=== PATIENT | female | born 1945 | race Caucasian/White ===

== ENCOUNTER 2025-06-26 23:25 | Emergency (ER) | payer MEDICARE, OTHER ==
[~2025-06-26] VITALS: Ht 165.1 cm; Wt 63.0 kg
--- NOTE | 2025-06-27 01:06 | DVH ---
EXAM: CT HEAD WITHOUT CONTRAST INDICATION: Status post fall large hematoma occipital scalp TECHNIQUE: CT of the head without intravenous contrast. Radiation Dose : 1. Head: CT Dose: CTDI volume is 52.78 mGy. Dose-length product is 1087.19 mGy*cm The dose indicators for CT are the volume Computed Tomography (CT) Dose Index (CTDIvol) and the Dose Length Product (DLP), and are measured in units of mGy and mGy-cm, respectively. These indicators are not patient dose, but values generated from the CT scanner acquisition factors. The report includes radiation exposure data for exposures received during this examination. COMPARISON: None FINDINGS: There is no evidence of acute intracranial hemorrhage, extra-axial collection, mass effect, midline s hift, herniation or hydrocephalus. 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 Increased prominence of the ventricles, sulci and cisterns consistent with sequelae of atrophic corti justin volume loss. The hewitt-white differentiation is intact. Moderate diffuse confluent periventricular and subcortical white matter hypoattenuation is nonspecifi c but may be related to small vessel ischemic disease. The visualized paranasal sinuses and mastoid air cells are clear. Superior left temporoparietal craniotomy defect. Moderate left superior parietal scalp hematoma. The surrounding soft tissues and osseous structures are otherwise unremarkable. IMPRESSION: 1. No acute intracranial abnormality. 2. 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 Radiation optimization: All CT scans at this facility use at least one of these dose optimization aman hniques: automated exposure control mA and/or kV adjustment per patient size (includes targeted exam s where dose is matched to clinical indication) or iterative reconstruction.
--- NOTE | 2025-06-27 01:07 | DVH ---
EXAM: CT CERVICAL WITHOUT CONTRAST HISTORY: Status post fall neck pain COMPARISON: None CTDIvol 53 mGy, DLP 1087 mGy*cm. TECHNIQUE: Multiple axial CT images of the spine were obtained using bone algorithm. Axial and james l reformatting was done. Bone and soft tissue windows were reviewed. FINDINGS: No evidence of vertebral fracture or compresison deformity. Straightening of normal lordotic curvature. Mild degenerative anterolisthesis of C4-C5 and C7-T1, wit hout degenerative listhesis. Normal alignment of the craniocervical junction with degenerative change s. Moderate multilevel spondylosis. No acute finding of the neck soft tissues or upper chest. 9 mm left thyroid nodule, below size thresh old for further imaging workup. Mild atherosclerosis. IMPRESSION: 1. No acute finding of the cervical spine.
[2025-06-27 01:15] VITALS: PULSE 75; RESP 18; O2SAT 98
[2025-06-27 01:16] VITALS: BP 147/83; PULSE 70; RESP 18; TEMP 97.7; O2SAT 96
--- NOTE | 2025-06-27 11:32 | ED.PDOC ---
Antonino. trauma (HPI) HPI Comments PT PRESENTS TO ED FOR CC OF HEAD AND NECK PAIN S/P TRIP AND FALL. DENIES LOC REMEMBERS THE ENTIRE EVENT. CURRENTLY ON 81 MG DAILY ASPIRIN. DENIES CHEST PAIN, SHORTNESS OF BREATH, DIZZINESS, VISION CHANGES, SLURRED SPEECH, ABDOMINAL PAIN, BACK PAIN, NAUSEA OR VOMITING. Chief Complaint: Fall Injury Time Seen by MD: 23:43 Reviewed notes: Nurses Notes, [employer]ing [employer] Officer Notes, Medications, Allergies Allergies: Coded Allergies: Statins (Verified Allergy, Unknown, 06/26/25) Information Source: Patient Mode of Arrival: Ambulatory Past Medical History PAST MEDICAL HISTORY: Denies Surgical History: Denies all surgeries CEPHALOMETRIC TECHNICIAN History: No Pertinent CEPHALOMETRIC TECHNICIAN History Family History Family History: Unknown Social History Smoker: Non-Smoker Alcohol: Denies ETOH Use Drugs: Denies Drug Use All Other Systems: Reviewed and Negative (SEE HPI) Physical Exam General Appearance: No Apparent Distress, Normal HEENT: Head (BASEBALL SIZE HEMATOMA OCCIPITAL HEAD WITH NO OPEN LESIONS OR LACERATIONS. NO NOTED CREPITUS ON PALPATION), Normal ENT Inspection, Pharynx Normal, TMs Normal Neck: Full Range of Motion, Non-Tender, Normal, Normal Inspection Respiratory: Chest Non-Tender, Lungs Clear, No Accessory Muscle Use, No Respiratory Distress, Normal Breath Sounds Cardiovascular: No Edema, No JVD, No Murmur, No Gallop, Normal Peripheral Pulses, Regular Rate/Rhythm Breast Exam: Deferred Gastrointestinal: No Organomegaly, Non Tender, No Pulsatile Mass, Normal Bowel Sounds, Soft Genitalia: Deferred Pelvic: Deferred Rectal: Deferred Extremities: No calf tenderness, Normal capillary refill, Normal inspection, Normal range of motion, Non-tender, No pedal edema Musculoskeletal : Apperance: Normal Neurologic: Alert, air tube releaser II-XII nml as Tested, No Motor Deficits, Normal Affect, Normal Mood, No Sensory Deficits Cerebellar Function: Normal Reflexes: Normal Skin: Dry, Normal Color, Warm Lymphatic: No Adenopathy Was a procedure done? Was a procedure done?: No Differential Diagnosis Multiple Trauma: Closed Head Injury, Spine Injury Neck Injury: Cervical Muscle Spasm, Cervical Sprain, Cervical Strain, Cervical Fracture X-Ray, Labs, Meds, VS Vital Signs Date Time Temp Pulse Resp B/P (MAP) Pulse Ox O2 Delivery O2 Flow Rate FiO2 06/26/25 23:25 97.9 65 16 138/60 97 97.9 X-Ray, Labs, Meds, VS Comment Advised to rest increase p.o. fluids with electrolytes. Light diet. Monitor for the next 24-48 hours avoid visual stimuli such as computer games, video games, or cell phone use to avoid headaches. Avoid vigorous activity. Return to the ER for nonstop vomiting, numbness, weakness, slurred speech, lethargy, or any concerning symptoms. PT indicates understanding and agrees with discharge plan of care Time of 1ST Reevaluation: 23:43 Reevaluation 1ST: Unchanged Time of 2ND Reevaluation: 01:11 Reevaluation 2ND: Improved Patient Education/Counseling: Diagnosis, Treatment, Need For Follow Up Family Education/Counseling: Diagnosis, Treatment, Need For Follow Up Departure 1 Departure Time of Disposition: 01:11 Impression: Primary Impression: Hematoma of occipital region of scalp Disposition: 01 HOME / SELF CARE / HOMELESS Condition: Stable Discharged With: Relative (Sibling) Critical Care Note Critical Care Time?: No Stability Stability form required: ELAINE Graves Jun 27, 2025 01:12
== END 2025-06-27 01:21 | disposition home or self-care (01) ==
LOC: EDBD 23:25 → ER 23:28
DX: S00.03XA Contusion of scalp, initial encounter (principal); X58.XXXA Exposure to other specified factors, initial encounter; Y93.89 Activity, other specified; Y92.89 Other specified places as the place of occurrence of the external cause; Y99.8 Other external cause status
CPT/HCPCS: 70450; 72125